=== PATIENT | female | born 2005 | race Caucasian/White ===

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

== ENCOUNTER 2024-03-13 06:38 | Inpatient (IN) | payer OTHER ==
[2024-03-18] MEDS ORDERED: HYDROcodone/Acetaminophen 5/325 mg Tablet PO PRN ×2 (06:36→20:17)
[2024-03-18] MEDS ORDERED: Promethazine HCl 25 MG/ML VIAL IM PRN ×3 (06:36→20:17)
[2024-03-18] MEDS ORDERED: Carboprost 250 MCG/ML AMP IM PRN (06:36)
[2024-03-18] MEDS ORDERED: hydrALAZINE 20 MG/ML VIAL SLOW IVP PRN ×2 (06:36→20:17)
[2024-03-18] MEDS ORDERED: Lidocaine 1% (PF) 30 ML VIAL SC PRN (06:36)
[2024-03-18] MEDS ORDERED: Misoprostol 200 MCG TAB PR PRN (06:36)
[2024-03-18] MEDS ORDERED: fentaNYL 50 mcg/mL 1 mL Vial SLOW IVP PRN (06:36)
[2024-03-18] MEDS ORDERED: Tranexamic Acid 1,000 MG/10 ML VIAL IVP PRN (06:36)
[2024-03-18] MEDS ORDERED: Methylergonovine 0.2 MG/ML VIAL IM PRN (06:36)
[2024-03-18] MEDS ORDERED: Oxytocin 30 units/NS 500 ML 500 ML IV SCH (06:36)
[2024-03-18] MEDS ORDERED: Ondansetron PF 4 MG/2 ML Vial IVP PRN ×3 (06:36→20:17)
[2024-03-18] MEDS ORDERED: Ibuprofen 800 MG TAB PO PRN (06:36)
[2024-03-18] MEDS ORDERED: Acetaminophen 500 MG TAB PO PRN (06:36)
[2024-03-18] MEDS ORDERED: Diphenoxylate HCl/Atropine Tablet PO PRN (06:36)
[2024-03-18 06:50] LABS: Hematocrit 30.5 % (34.9-44.5); Hemoglobin 10.6 g/dL (12.0-15.5); Mean Corpuscular HGB CONC 34.8 g/dL (32.0-36.0); Mean Corpuscular Hemoglobin 30.9 pg (27.0-33.0); Mean Corpuscular Volume 88.9 fL (81.6-98.3); Mean Platelet Volume 10.9 fL (7.4-10.4); Platelet Count 169 10x3/uL (150-450); RBC Distribution Width 12.6 % (11.5-14.5); Red Blood Cell (RBC) Count 3.43 10x6/uL (3.90-5.03); White Blood Cell (WBC) Count 9.6 10x3/uL (3.5-10.5)
[2024-03-18] MEDS: Penicillin G Potassium 5 MILL.UNITS in Sodium Chloride 0.9% 100 ML IVPB SCH (06:59)
[2024-03-18] MEDS: Lactated Ringer's 1,000 ML IV SCH (07:01)
[2024-03-18 07:14] LABS: HBsAg Index 0.17 S/CO (0-0.99); Hep B Surf Ag - L&D Non-Reactive S/CO (NonReactive)
[2024-03-18 07:16] LABS: Syphilis Antibody Nonreactive (Nonreactive); Syphilis Antibody Index 0.06 S/CO (<1.00 Non-Reactive)
[2024-03-18] MEDS: Oxytocin 30 units/NS 500 ML 500 ML IV SCH ×2 (07:18→15:22)
[2024-03-18] MEDS: Penicillin G 2.5 MILL.units 2.5 MILL.UNITS in Premix 1 BAG IVPB SCH (11:04)
[2024-03-18] MEDS: fentaNYL/Ropivacaine Epidural 100 ML ONE (12:26)
[2024-03-18 14:58] VITALS: BMI 34.2
[2024-03-18] MEDS ORDERED: ePHEDrine Sulfate 50 MG/10 ML VIAL SLOW IVP PRN (15:12)
[2024-03-18] MEDS ORDERED: Naloxone HCl 0.4 mg/ml Vial IVP PRN ×2 (15:12)
[2024-03-18] MEDS ORDERED: Moisturizing Cream (Eucerin) 113 GM JAR TOP PRN (15:12)
[2024-03-18] MEDS ORDERED: Lactated Ringer's 500 ML IV PRN (15:12)
[2024-03-18] MEDS ORDERED: diphenhydrAMINE 50 MG/ML VIAL IVP PRN (15:12)
[2024-03-18] MEDS ORDERED: Acetaminophen 325 MG TAB PO PRN (15:12)
[2024-03-18] MEDS ORDERED: fentaNYL 2 mcg/Ropivacaine 0.2% Epidural 100 ML CADD EPIDURAL SCH (15:15)
[2024-03-18] MEDS ORDERED: Communication Order-Pharmacy FS SCH (15:15)
[2024-03-18] MEDS ORDERED: diphenhydrAMINE 25 MG CAP PO PRN (20:17)
[2024-03-18] MEDS ORDERED: Boostrix 0.5 ML (Tdap) VIAL (>/=7 yrs of age) IM ONE (20:17)
[2024-03-18] MEDS ORDERED: Milk Of Magnesia 30 ML UDCUP PO PRN (20:17)
[2024-03-18] MEDS ORDERED: Bisacodyl 10 MG SUPP PR PRN (20:17)
[2024-03-18] MEDS: Benzocaine-Menthol 82.5 ML CAN TOP PRN (22:41)
[2024-03-18] MEDS: Ibuprofen 800 MG TAB PO SCH (22:42)
[2024-03-18] MEDS: Docusate 100 MG CAP PO SCH (22:43)
[2024-03-19] MEDS: Ferrous Sulfate 325 MG TAB PO SCH (12:26)
[2024-03-19 16:18] VITALS: BP 129/64; TEMP 98.6
== END 2024-03-19 19:51 | disposition home or self-care (01) | DRG 807 ==
LOC: CSHLD 03-18 05:24 → CSHPP 03-18 19:30
PROVIDERS: ADMIT Family Medicine; ATTEND Family Medicine
PROC: 10E0XZZ Delivery of Products of Conception, External Approach (ICD-10-PCS; principal; 2024-03-18)
PROC: 0UQMXZZ Repair Vulva, External Approach (ICD-10-PCS; 2024-03-18)
PROC: 10907ZC Drainage of Amniotic Fluid, Therapeutic from Products of Conception, Via Natural or Artificial Opening (ICD-10-PCS; 2024-03-18)
DX: O99.824 Streptococcus B carrier state complicating childbirth (principal); Z37.0 Single live birth; Z3A.40 40 weeks gestation of pregnancy; O69.81X0 Labor and delivery complicated by cord around neck, without compression, not applicable or unspecified; O70.0 First degree perineal laceration during delivery
CPT/HCPCS: 51702; 85027; 86780; 86850; 86900; 86901; 87340; J2540; J2590; J3490; J7120